=== PATIENT | male | born 2000 | race Caucasian/White ===

== ENCOUNTER 2023-04-22 09:53 | Emergency (ER) | payer SELFPAY ==
--- NOTE | ~2023-04-22 | CT_ITS ---
EXAMINATION: CT brain wo con INDICATION: Head injury COMPARISON: None TECHNIQUE: Standard unenhanced head CT. The dose-length product (DLP) was 605.33 mGy-cm. The mA was a djusted according to patient size. Iterative reconstruction technique was employed. FINDINGS: No intracranial hemorrhage, acute infarction, or abnormal mass lesion. The ventricles are n ormal. No abnormal mass effect or midline shift. The butler-white matter differentiation is normal. The basal cisterns are patent. The orbits are normal. There is mild mucosal thickening of the paranasal sinuses. IMPRESSION: 1. No acute intracranial abnormality. Reviewed, dictated and finalized at location A. [facility]
[2023-04-22 09:58] VITALS: BP 139/92; PULSE 78; RESP 16; TEMP 36.3; O2SAT 99
--- NOTE | 2023-04-22 11:09 | ECG_ITS ---
Measurements Intervals [place] Rate: 51 P: 50 PA: 147 QRS: 15 QRSD: 96 T: 20 QT: 416 QTc: 384 Interpretive Statements SINUS BRADYCARDIA MINIMAL Q WAVES- HIGH LATERAL LEADS ST ELEVATION IN DIFFUSE LEADS- PROBABLY EARLY REPOLARIZATION ABNORMALITY BASELINE ARTIFACT- V5 BORDERLINE ECG NO PREVIOUS ECG AVAILABLE FOR COMPARISON Electronically Signed On 04-22-2023 20:17:50 [employer] by Cayetano Laughlin D.O.
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
--- NOTE | 2023-04-22 11:20 | PC.NURSE ---
pt had panic attack ERP notified. Ativan ordered but ERP wants to wait to give ativan because s/s of panic attack are resolving
[2023-04-22] MEDS: KETOROLAC 15 MG/ML VIAL (*BKC) IV PUSH (11:26)
[2023-04-22] MEDS: diphenhydrAMINE HCl INJ 50 MG/ML VIAL 25 MG IV PUSH (11:26)
[2023-04-22] MEDS: SODIUM CHLORIDE 0.9% IV 1,000 ML 999 ML IV CONT (11:27)
[2023-04-22] MEDS: PROCHLORPERAZINE EDISYLATE 10 MG/2 ML VIAL IV PUSH (11:28)
--- NOTE | 2023-04-22 11:30 | PC.NURSE ---
pt vasovagal during SLN placement.
[2023-04-22 11:31] VITALS: BP 137/86; PULSE 77; RESP 16; O2SAT 100
--- NOTE | 2023-04-22 12:03 | PC.NURSE ---
back to room from CT
--- NOTE | 2023-04-22 12:04 | PC.NURSE ---
panic attck resolved and pt does not want lorazepam
[2023-04-22 12:30] VITALS: BP 120/68; PULSE 62; RESP 16; TEMP 36.7; O2SAT 100
[2023-04-22 12:42] VITALS: TEMP 36.7
== END 2023-04-22 12:42 | disposition home or self-care (01) ==
PROVIDERS: Emergency Provider Physician Assistant
DX: G44.309 Post-traumatic headache, unspecified, not intractable (principal); F07.81 Postconcussional syndrome; R00.1 Bradycardia, unspecified; V49.9XXA Car occupant (driver) (passenger) injured in unspecified traffic accident, initial encounter; W22.8XXA Striking against or struck by other objects, initial encounter; R94.31 Abnormal electrocardiogram [ECG] [EKG]
CPT/HCPCS: 70450; 93005; 96361; 96374; 96375; 99284; J0780; J1200; J1885; J7030